=== PATIENT | female | born 1940 | race Caucasian/White ===

== ENCOUNTER 2020-07-24 04:10 | Day surgery (SDC) | payer OTHER, MEDICARE ==
[2020-07-23 16:11] VITALS: BMI 29.2
[2020-07-24] MEDS ORDERED: DEXAMETHASONE SOD PHOSPHATE 10 MG/1 ML VIAL ONE (07:33)
[2020-07-24] MEDS ORDERED: BUPIVACAINE HCL/PF 0.75% 10 ML VIAL ONE (07:34)
[2020-07-24] MEDS ORDERED: BUPIVACAINE HCL 50 ML ONE (07:34)
[2020-07-24] MEDS ORDERED: BUPIVACAINE HCL/PF 0.25% (2.5MG/ML) 10 ML VIAL ONE (07:34)
[2020-07-24] MEDS ORDERED: LIDOCAINE HCL/PF 1% SDV 5ML VIAL ONE (07:34)
[2020-07-24] MEDS ORDERED: LIDOCAINE 1% P/F 10 MG/ML VIAL INF ONE (08:21)
[2020-07-24] MEDS ORDERED: IOHEXOL 180 MG/1 ML ML IJ ONE ×2 (08:29→08:36)
[2020-07-24] MEDS ORDERED: DEXAMETHASONE SOD PHOSPHATE 10 MG/1 ML VIAL IVPUSH ONE (08:39)
[2020-07-24 10:10] VITALS: BP 155/72; PULSE 63; TEMP 97.8
== END 2020-07-24 10:00 | disposition home or self-care (01) ==
LOC: JASU-SURG 04:10
PROVIDERS: ATTEND Pain Medicine Pain Medicine
PROC: 3E0R33Z Introduction of Anti-inflammatory into Spinal Canal, Percutaneous Approach (ICD-10-PCS; 2020-07-24)
PROC: 3E0R3BZ Introduction of Anesthetic Agent into Spinal Canal, Percutaneous Approach (ICD-10-PCS; principal; 2020-07-24 08:00)
DX: M54.16 Radiculopathy, lumbar region (principal)
CPT/HCPCS: 76000-TC-FY; J1100